=== PATIENT | male | born 2005 | race Caucasian/White ===

== ENCOUNTER 2023-01-05 22:01 | Emergency (ER) | payer MEDICAID ==
[2023-01-05] MEDS ORDERED: BACITRACIN OINTMENT 28 GM TUBE TOP STA (22:12)
--- NOTE | 2023-01-05 22:20 | ED Integumentary General ---
General Chief Complaint: Skin/Wound Problems Stated Complaint: OIL BURN ON ABD Nursing Triage Note: Pt presents with a burn to his abdomen. Pt was frying chicken and the hot oil spilled on him. Pt has first and second degree salazar to his mid abdomen. Source: patient History of Present Illness Date Seen by Provider: Jan 05, 2023 Time Seen by Provider: 22:06 Initial Comments 17-year-old male presenting with complaints of grease burn to his abdomen. He states he was frying chicken and the hot oil splashed onto his abdomen. He was not wearing a shirt at the time. He has areas of first and second-degree salazar to his mid abdomen and periumbilical area. He has no third-degree areas of nonblanching or numb areas. He states this occurred approximately an hour prior to arrival. He did clean it with soap and water and applied cool water and then Vaseline ointment. He states his last tetanus shot was approximately 4 to 5 years ago and bicycle. He denies allergies to any medications and denies taking any prescription medications. He rates his pain at a 5 out of 10. Timing/Duration: this evening Severity: moderate Location: torso (Periumbilical area of the abdomen) Possible Cause: other (Hot oil from frying chicken) Associated Symptoms: blisters; No fever, No flushing, No headache, No hives, No jaundice, No malaise, No nasal congestion, No numbness, No pallor, No paresthesia, No petechiae, No rash, No sore throat, No swelling/mass/lumps Allergies and Home Medications Allergies Coded Allergies: No Known Drug Allergies (Unverified , 01/05/23) Patient Home Medication List Home Medication List Reviewed: Yes Review of Systems Review of Systems Constitutional: No chills, No fever EENTM: no symptoms reported Respiratory: no symptoms reported Cardiovascular: no symptoms reported Gastrointestinal: no symptoms reported Genitourinary: no symptoms reported Musculoskeletal: no symptoms reported Skin: see HPI Psychiatric/Neurological: Denies Numbness, Denies Paresthesia Past Ickjanq-[id number]-Fmvdyb Hx Patient Social History Tobacco Use?: No Use of E-Cig and/or Vaping dev: No Substance use?: No Alcohol Use?: No Pt feels they are or have been: No Past Medical History Surgeries: No Physical Exam Vital Signs Vital Signs - First Documented 01/05/23 22:03 Pulse 67 Resp 16 B/P (MAP) 133/86 (102) Pulse Ox 97 O2 Delivery Room Air Capillary Refill : Less Than 3 Seconds General Appearance: WD/WN, no apparent distress Cardiovascular: normal peripheral pulses Neurologic/Psychiatric: alert, oriented x 3 Skin: warm/dry, other (First and second-degree salazar to the periumbilical abdomen with mostly erythematous first-degree and a few areas of blistering for second-degree.) Progress/Results/Core Measures Results/Orders My Orders Orders - PAUL PINEDA MD Wound Dressing-Ed (01/05/23 22:12) Bacitracin Ointment (Bacitracin Ointment (01/05/23 22:12) Vital Signs/I&O 01/05/23 22:03 Pulse 67 Resp 16 B/P (MAP) 133/86 (102) Pulse Ox 97 O2 Delivery Room Air Blood Pressure Mean: 102 Progress Progress Note : Progress Note Counseled patient on management of salazar and follow-up and return precautions. Apply antibiotic ointment and a nonstick dressing here in the ED. Advised to do that at least twice a day. He does have baseball practice as he is living here for college and advised that he could still practice but to be careful and keep the area clean to help try and prevent infection. Departure Impression Primary Impression: Burn of first degree of abdominal wall, initial encounter Additional Impression: Burn of second degree of abdominal wall, initial encounter Disposition: 01 HOME, SELF-CARE Condition: Stable Departure-Patient Inst. Decision time for Depature: 22:18 Referrals: [facility] [place] Patient Instructions: Minor Skin Salazar ED Add. Discharge Instructions: Keep the area clean with soap and water. Apply antibiotic ointment and keep covered with nonstick gauze 2-3 times a day to help prevent infection. Follow-up with the clinic if having continued pain or worsening problems. Make sure to change the dressing if it gets dirty May take acetaminophen and/or ibuprofen to help with pain. All discharge instructions reviewed with patient and/or family. Voiced understanding. Work/School Note: Work Release Form Date Seen in the Emergency Department: Jan 05, 2023 Return to Work: Jan 06, 2023 Restrictions: Return-No Fever (24hrs) Other Restrictions Listed Below: Keep area of burn clean and dry. Cover with clean dressings. PAUL PINEDA MD Jan 05, 2023 22:19
[2023-01-05 22:22] VITALS: BP 133/86
== END 2023-01-05 22:24 | disposition home or self-care (01) ==
LOC: ER FS 22:03
DX: T21.22XA Burn of second degree of abdominal wall, initial encounter (principal); Z28.310 Unvaccinated for COVID-19; X10.2XXA Contact with fats and cooking oils, initial encounter
CPT/HCPCS: 99282